=== PATIENT | male | born 1965 | race Caucasian/White ===

== ENCOUNTER 2024-11-15 07:35 | Day surgery (SDC) | payer OTHER, SELFPAY ==
[2024-11-15] VITALS (14 sets, daily range): BP systolic 133–142; BP diastolic 76–89; BMI 34.1
[2024-11-15 08:46] LABS: Hemoglobin 15.1 g/dL (13.0-18.0); Mean Corp Hgb Conc. 33.6 g/dL (33.0-37.0); Mean Corpuscular Hgb 30.3 pg (27.0-31.0); Mean Corpuscular Volume 90.4 fL (80.0-94.0); Mean Platelet Volume 9.7 fL (7.4-10.4); Platelet Count 208 10^3/uL (130-400); Red Blood Cell Count 4.98 10^6/uL (4.70-6.10); White Blood Cell Count 6.6 10^3/uL (4.8-10.8)
[2024-11-15 08:58] LABS: Blood Urea Nitrogen 19 mg/dl (9-20); Calcium 9.8 mg/dl (8.4-10.2); Carbon Dioxide 32 mmol/L (22-30); Chloride 104 mmol/L (98-107); Estimated Creatinine Clearance 97 ml/min; Glucose 88 mg/dl (70-99); Potassium 4.7 mmol/L (3.5-5.1); Sodium 142 mmol/L (135-145); eGFR > 60.00
[2024-11-15] MEDS: NSS 1000 IV ×2 (09:10→11:16)
[2024-11-15 11:40] LABS: Hematocrit 43.6 % (39.0-52.0); Hemoglobin 14.4 g/dL (13.0-18.0); Mean Corpuscular Hgb 30.1 pg (27.0-31.0); Mean Platelet Volume 10.3 fL (7.4-10.4); Platelet Count 176 10^3/uL (130-400); Red Blood Cell Count 4.79 10^6/uL (4.70-6.10); Red Cell Dist. Width 12.8 % (11.5-14.5); White Blood Cell Count 6.8 10^3/uL (4.8-10.8)
--- NOTE | 2024-11-15 13:48 | ITS.CL.CATH ---
Grip - Catheterization
Cardiac Catheterization
Procedure Report:
LEFT HEART CATHETERIZATION
Date of Procedure: November 15, 2024
Referring: Dr. Galina Adamson
PROCEDURES:
1. Left heart catheterization with coronary and single-plane left ventriculography
2. Selective DEBBY angiography
INDICATION: This is a 59-year-old gentleman who underwent coronary artery bypass grafting at [facility] in 2007. Coronary angiography around that time was notable for complex LAD-diagonal stenosis and he was given the option of complex
stenting versus bypass surgery and elected for surgical revascularization. He does have a prior history of opioid abuse but has been clean for about 11 years. He has not been compliant with medications or follow-up and was admitted to [facility] with chest discomfort and near syncope. He left against medical advice. He presented to our office for evaluation of chest discomfort that had been present for several weeks and is now referred for coronary angiography.
ACCESS: Right common femoral artery, 6 Hebrew sheath
HEMODYNAMICS : (mmHg)
AO (s/d) : 153/80, 108
LV (s/d) : 150/9
LVEDP : 23
CORONARY ANGIOGRAPHY
Dominance: Right
LEFT MAIN: Normal
LEFT ANTERIOR DESCENDING: The LAD arises normally from the left main and runs in the anterior interventricular groove. The LAD has an eccentric 90% proximal stenosis near the first septal facilities management executive with competitive flow noted in the mid LAD from a
widely patent PEREYRA graft.
CIRCUMFLEX: The circumflex is a medium caliber nondominant vessel. The only sizable obtuse marginal branch is 100% chronically occluded in the mid vessel and the distal vessel is noted to fill via well-developed left to left collaterals best seen
during PEREYRA injection. The OM 3 is a moderate caliber vessel filling via LAD collateral
RIGHT CORONARY ARTERY: The right coronary artery is a dominant vessel that is moderately calcified over its course. No focal obstructive stenosis is noted. The PDA and posterolateral branch are both patent.
GRAFT ANGIOGRAPHY:
1. YINE-fwxprwmg-JEA: There is a sequential PEREYRA graft to first diagonal and mid LAD which is widely patent to both limbs. There is antegrade and retrograde filling of both the diagonal and the LAD. The PEREYRA is anastomosed to the mid LAD with
anterograde filling to the apex and retrograde filling proximally. A moderate caliber OM 3 is noted to fill via well-developed left to left collaterals
LEFT VENTRICULOGRAPHY: Left ventriculography was performed in an MARSH projection. The digital single-plane left ventricular ejection fraction is estimated at 60%. No regional wall motion abnormalities are noted
SEDATION: 53 minutes of procedural sedation was utilized. An independent ophthalmic medical technician was present to assist with and help manage the patient's level of consciousness and physiologic status
RADIATION SUMMARY: Fluoro Time (min): 6.0, Dose (mGy): 949, DAP (Gy.cm2) : 65.2
Closure Device: TR band
CONCLUSION
1. There is significant tetlin vessel coronary artery disease with high-grade proximal mid LAD stenosis with the distal vessel filling via a widely patent sequential OWPU-hymefsph-OTC graft. The LAD and diagonal branches fill anterograde and
retrograde. There is also occlusion of the only sizable obtuse marginal branch proximally. The distal vessel fills via very well-developed left to left collaterals from the LAD. This is likely chronic in nature given these well-developed
collateral
2. Preserved LV systolic function
RECOMMENDATIONS
1. Medical therapy. He is currently on no antianginal therapy and will try adding oral beta-madiha and low-dose amlodipine. He will be instructed to remain well-hydrated
2. He should increase his rosuvastatin to 20 mg daily as instructed by Dr. Adamson
3. Continue aspirin
Copy to: Dr. Galina Adamson
== END 2024-11-15 14:00 | disposition home or self-care (01) ==
LOC: CATH 07:35
PROVIDERS: Nurse Practitioner; ATTENDING PHYSICIAN Internal Medicine Interventional Cardiology; FAMILY PHYSICIAN Family Medicine; OTHER PHYSICIAN Internal Medicine Cardiovascular Disease
DX: I25.10 Atherosclerotic heart disease of native coronary artery without angina pectoris (principal); Z95.1 Presence of aortocoronary bypass graft; F11.11 Opioid abuse, in remission; R55 Syncope and collapse
CPT/HCPCS: 80048; 85027; 93459; 99152; 99153; C1760; C1894; Q9967

== ENCOUNTER 2025-08-12 11:29 | Emergency (ER) | payer OTHER, SELFPAY ==
[2025-08-12 11:53] VITALS: BP 108/74
[2025-08-12 12:20] LABS: Hematocrit 42.6 % (39.0-52.0); Hemoglobin 14.2 g/dL (13.0-18.0); Mean Corp Hgb Conc. 33.3 g/dL (33.0-37.0); Mean Corpuscular Volume 91.4 fL (80.0-94.0); Nucleated Red Blood Cells % 0 % (-); Platelet Count 191 10^3/uL (130-400); Red Cell Dist. Width 12.8 % (11.5-14.5)
[2025-08-12 12:31] LABS: ALT (SGPT) 47 U/L (0-50); AST (SGOT) 36 U/L (17-59); Albumin 4.3 g/dl (3.5-5.0); Alkaline Phosphatase 63 U/L (38-126); Blood Urea Nitrogen 22 mg/dl (9-20); Calcium 9.4 mg/dl (8.4-10.2); Carbon Dioxide 29 mmol/L (22-30); Chloride 102 mmol/L (98-107); Glucose 80 mg/dl (70-99); Potassium 5.1 mmol/L (3.5-5.1); Sodium 135 mmol/L (135-145); Total Protein 6.7 g/dl (6.3-8.2); eGFR > 60.00
[2025-08-12 12:54] LABS: Troponin I < 0.012 ng/ml
[2025-08-12 14:35] VITALS: BP 105/66
[2025-08-12 16:17] VITALS: BP 117/72
--- NOTE | 2025-08-12 16:31 | ED.GENMED ---
History of Present Illness
<Saúl Gomez DO, Resident - Last Filed: 08/12/25 19:04>
General
Chief Complaint: Chest Pain
Source: patient
Exam Limitations: none
Time Seen by Provider: 08/12/25 16:12
Nursing documentation reviewed up to this point in time: agreed with
History of Present Illness
History of Present Illness:
Mariano Burden is a 60M w/ PMHx of HTN, HLD, CAD, s/p CABG, and recent cath in 11/2024 with significant [place] vessel coronary artery disease with high-grade proximal mid LAD stenosis. He is presenting with pain in the chest. Patient states that he
slipped and fell on the ice 2 days ago and sustained immediate pain to this chest, neck and lower back area. He went to the ED at [facility] where he states he had a negative CXR and cardiac workup. Patient endorses that he continued to have
chest pain since then and called his solar panel installer Dr. Adamson who told him that he should come to the ED for further evaluation. Patient endorses anterior substernal chest pain that is mostly constant but intermittently gets worse, and is worse
with getting up from a seated position and with palpation. He does not know of exertional provocation as he has been resting over the past couple of days. States the pain radiates to the neck, and that he had one episode where he got dizzy with
getting up from seated position. Otherwise denies SOB, nausea, vomiting, diaphoresis.
Past History
<Saúl Gomez DO, Resident - Last Filed: 08/12/25 19:04>
Past History
ED Past Medical History: CAD, HTN, Hypercholesterolemia and [place]
ED Past Surgical History: Cardiac
Review of Systems
<Saúl Gomez DO, Resident - Last Filed: 08/12/25 19:04>
Review of Systems
Allergies reviewed?: Yes
All Other Systems: ROS reviewed and negative except as documented in HPI and ROS
Phy Exam
<Saúl Gomez DO, Resident - Last Filed: 08/12/25 19:04>
Physical Exam
Physical Exam:
General: well-developed, well-nourished male in no acute distress
HEENT: normochephalic, atraumatic. No contusions of the scalp. Sclera anicteric. EOMI.
Neck: Supple, normal ROM. Mild tenderness to palpation at the midline of the cervical spine at the area of C4/C5.
CV: RRR, no murmurs, rubs, or gallops. Pain reliably reproducible by anterior chest wall palpation.,
REsp: CTAB, no wheezing, rales, rhonchi.
Abdomen: soft, nondistended.
MSK: no clubbing, no cyanosis, no edema
Neuro: awake, alert, moving all 4s
Psych: calm, normal affect.
Scores
<Saúl Gomez DO, Resident - Last Filed: 08/12/25 19:04>
Heart Failure Risk
Heart Failure Risk Score: Not Applicable
Heart Score for Chest Pain Patients
STEMI patient?: Not applicable
Withdrawal Assessment of Alcohol
Withdrawal Assessment Completed?: Not applicable
Course
<Saúl Gomez DO, Resident - Last Filed: 08/12/25 19:04>
Orders/Labs/Results
Orders:
Orders
08/12/25 11:58
EKG [Electrocardiogram (*1)] Urgent
Reason for Study: Chest Pain
08/12/25 11:59
EKG- Treatment ONCE
08/12/25 12:04
Complete Blood Count/With Diff Urgent
Comprehensive Metabolic Panel Urgent
Troponin I Urgent
08/12/25 16:45
CT Head W/o Iv Contrast Urgent
Comment:
Reason For Exam: Fall
Cervical Spine wo Contrast CT [CT Cervical Spine W/o Iv Contr] Urgent
Comment:
Reason For Exam: Fall
Abnormal Lab Results
08/12/25
12:04
RBC 4.66 L 10^6/uL
(4.70-6.10)
Absolute Monos (auto) 0.7 H 10^3/uL
(0.1-0.6)
Monocytes % 10.3 H %
(1.7-9.3)
BUN 22 H mg/dl
(9-20)
08/12/25 12:04
08/12/25 12:04
Vital Signs
Initial and Last Documented VS:
Initial Vital Signs
Temp Pulse Resp BP Pulse Ox
97.7 F 71 16 108/74 97
08/12/25 11:53 08/12/25 11:53 08/12/25 11:53 08/12/25 11:53 08/12/25 11:53
Last Documented Vital Signs
Temp Pulse Resp BP Pulse Ox
97.4 F 61 13 117/72 96
08/12/25 14:35 08/12/25 16:17 08/12/25 16:17 08/12/25 16:17 08/12/25 16:44
<Darryn Michelle MD - Last Filed: 08/12/25 17:29>
Orders/Labs/Results
Orders:
Orders
08/12/25 11:58
EKG [Electrocardiogram (*1)] Urgent
Reason for Study: Chest Pain
08/12/25 11:59
EKG- Treatment ONCE
08/12/25 12:04
Complete Blood Count/With Diff Urgent
Comprehensive Metabolic Panel Urgent
Troponin I Urgent
08/12/25 16:45
CT Head W/o Iv Contrast Urgent
Comment:
Reason For Exam: Fall
Cervical Spine wo Contrast CT [CT Cervical Spine W/o Iv Contr] Urgent
Comment:
Reason For Exam: Fall
Abnormal Lab Results
08/12/25
12:04
RBC 4.66 L 10^6/uL
(4.70-6.10)
Absolute Monos (auto) 0.7 H 10^3/uL
(0.1-0.6)
Monocytes % 10.3 H %
(1.7-9.3)
BUN 22 H mg/dl
(9-20)
08/12/25 12:04
08/12/25 12:04
Vital Signs
Initial and Last Documented VS:
Initial Vital Signs
Temp Pulse Resp BP Pulse Ox
97.7 F 71 16 108/74 97
08/12/25 11:53 08/12/25 11:53 08/12/25 11:53 08/12/25 11:53 08/12/25 11:53
Last Documented Vital Signs
Temp Pulse Resp BP Pulse Ox
97.4 F 61 13 117/72 96
08/12/25 14:35 08/12/25 16:17 08/12/25 16:17 08/12/25 16:17 08/12/25 16:44
<Saúl Gomez DO, Resident - Last Filed: 08/12/25 19:04>
MDM/Problems Addressed
Differential Diagnosis Includes:
Anterior Chest Wall Injury, Back Pain, ACS, Pericarditis, Aortic Dissection, Rib Injury
MDM/Problems Addressed:
60M w/ PMHx of HTN, HLD, CAD, s/p CABG, and recent cath who presented with pain of the chest after sustaining a fall. Patient was seen at ED at [facility] Where patient endorses having negative chest x-ray and cardiac workup. Chest pain
continued. He called cardiology who suggested he come to ED for further evaluation. On arrival, vital signs stable. Troponin negative. EKG NSR. On physical exam, chest pain is reliably reproducible with anterior chest wall palpation. Given the
patient's description of the chest pain and these findings on physical exam labs, I think there is a low clinical suspicion for ACS. Pain is more likely due to musculoskeletal injury. Patient does have midline tenderness of the cervical spine at
approximately the area of C4, did not get any imaging during last ED visit. Will order a CT of the head and C-spine to evaluate for injury. Patient should otherwise follow-up with cardiology for additional evaluation primary cardiac perspective.
Patient can continue Flexeril and [id number] pain medication for additional pain control.
Cardiac work up is negative and physical examination reveals a musculoskeletal cause of the patient's chest pain. CT of the head and C-spine are negative for acute fractures dislocations. Patient should otherwise follow-up with cardiology for
additional evaluation primary cardiac perspective. Patient can continue Flexeril and [id number] pain medication for additional pain control. Return precautions given.
<Saúl Gomez DO, Resident - Last Filed: 08/12/25 19:04>
*Pulse Oximetry
SaO2: 96
Oxygen Mode of Delivery: Room air
Patient hypoxic: no
*Critical Care Note
Total Time (30-74mins, 75-104mins- exclusive of procedures): Not Applicable
ED Attending Note
<Saúl Gomez DO, Resident - Last Filed: 08/12/25 19:04>
-
Portions of this chart may have been created with voice recognition software.� Occasional wrong word or��sound alike� substitutions may have occurred due to the inherent limitations of voice recognition software.
<Darryn Michelle MD - Last Filed: 08/12/25 17:29>
ED Attending Note
Patient seen and examined by attending physician: Yes
I performed a history and physical exam of patient and discussed management with resident, I reviewed resident's note and agree with documented findings and plan of care.: Yes
ED Attending Note:
60-year-old male slipped on the ice 2 days ago falling backward hitting the back of his head. At that time complained of some chest pain. Seen at another facility. Cardiac workup was negative. Chest x-ray was negative. Has had ongoing very
localized upper midsternal chest pain since then. Elected to get reevaluated for the symptoms. Some posterior neck pain.
On exam patient is nontoxic in no distress. Normocephalic atraumatic. Some lower midline spinous process tenderness. No deformity or swelling. Very localized upper midsternal chest tenderness at the exact location of his symptoms. He is in no
respiratory distress. Regular rate and rhythm. Warm and dry. Perfusing well.
Labs are stable. EKG is unremarkable. Troponin is negative. From a cardiac standpoint I do not feel this is cardiac. He has had essentially continuous symptoms for 2 days with a very localized atypical chest pain. Workup is unremarkable here.
Feel repeat cardiac testing is not warranted. However he does have some posterior midline cervical tenderness. CT scans will be done. If negative stable for discharge to follow-up
Discharge Plan
Departure
Patient Disposition: Home (Routine Discharge)
Date of Disposition: 08/12/25
Time of Disposition: 18:04
Patient with high blood pressure during this ER visit?: No
Discharge Problem:
Chest wall pain, Neck pain, Fall
Prescriptions:
No Action
multivitamin Tablet
2 tab PO DAILY
gabapentin 600 mg Tablet
600 mg PO TID
tamsulosin 0.4 mg Capsule
0.4 mg PO HS
trazodone 100 mg Tablet
100 mg PO HS
aspirin 81 mg Tablet,Chewable
81 mg PO DAILY
rosuvastatin [Crestor] 20 mg Tablet
20 mg PO HS
Caplyta 42 mg Capsule
42 mg PO HS
amlodipine 2.5 mg tablet
2.5 mg PO DAILY Qty: 30 6RF
metoprolol succinate [Toprol XL] 25 mg tablet extended release 24 hr
25 mg PO DAILY Qty: 30 6RF
Referrals:
Truman Oliver DO [Family Provider, Family Practice]
Activity Restrictions/Additional Instructions:
After physical examination and testing, it is likely that your chest pain emanates from musculoskeletal pain after your fall.
Imaging did not reveal any fractures in the neck or injury to the head and brain.
You may continue to take over the counter pain medication and Flexeril as needed, as prescribed by the ED at [facility].
If you start to experience chest pain that is constant and not reproducible by pressing on your chest, or that gets worse with exertion and better with rest, return to the ED or call your solar panel installer.
Follow up with your primary care provider for additional pain control if your current symptoms persist.
Interventions
Interventions:
*General Assessment Last Done: 08/12/25 11:53
*Neglect/Abuse Screening Last Done: 08/12/25 18:21
*ED COVID-19 Vaccine History Last Done: 08/12/25 11:53
*ED Influenza Vaccine History Last Done: 08/12/25 11:53
[facility] Risk Assessment Tool Last Done: 08/12/25 16:30
*Risk Screen - Suicide (C-SSRS) Last Done: 08/12/25 11:53
*Nursing Disposition Last Done: 08/12/25 18:21
ED- Cardiac Assessment Last Done: 08/12/25 16:17
Discharge Date and Time
Discharge Date/Time: 08/12/25 18:22
Print Language: LIBERIAN
== END 2025-08-12 18:22 | disposition home or self-care (01) ==
LOC: EMR 11:29
PROVIDERS: Emergency Medicine; EMERGENCY PHYSICIAN Emergency Medicine; FAMILY PHYSICIAN Family Medicine
DX: R07.89 Other chest pain (principal); M54.2 Cervicalgia; I10 Essential (primary) hypertension; E78.00 Pure hypercholesterolemia, unspecified; I25.10 Atherosclerotic heart disease of native coronary artery without angina pectoris; I25.2 Old myocardial infarction; W00.0XXA Fall on same level due to ice and snow, initial encounter; Z95.1 Presence of aortocoronary bypass graft
CPT/HCPCS: 99284; 70450; 72125; 80053; 84484; 85025; 93005